=== PATIENT | female | born 1965 | race Caucasian/White ===

== ENCOUNTER 2024-07-01 09:09 | Emergency (ER) | payer OTHER ==
[2024-07-01 09:29] VITALS: BP 132/79; PULSE 85; RESP 18; TEMP 98.1; BMI 35.7
== END 2024-07-01 12:00 | disposition home or self-care (01) ==
LOC: FER 09:09
DX: M79.605 Pain in left leg (principal); R31.9 Hematuria, unspecified; K92.1 Melena
CPT/HCPCS: 81003; 87086; 93971-TC; 99284-25